=== PATIENT | male | born 1940 | race Caucasian/White ===

== ENCOUNTER → 2016-07-03 | Outpatient (REF) | payer MEDICARE | LOC: M LAB REF 12:45 | PROVIDERS: ATTEND Surgery | DX: C44.629 Squamous cell carcinoma of skin of left upper limb, including shoulder (principal) ==

== ENCOUNTER → 2018-07-13 | Outpatient (CLI) | payer MEDICARE ==
[2018-07-13 15:53] LABS: INR 0.94; PROTHROMBIN TIME 12.7 SECONDS (12.1-14.4)
[2018-07-13 16:06] LABS: CHOLESTEROL RISK RATIO 4.522 (<5)
[2018-07-17 00:09] LABS: ANTINUCLEAR ANTIBODIES DIRECT Negative (Negative)
== END ==
LOC: M LAB 14:57
PROVIDERS: ATTEND Ophthalmology
DX: H34.9 Unspecified retinal vascular occlusion (principal)

== ENCOUNTER → 2019-09-21 | Outpatient (REF) | payer MEDICARE ==
[2019-09-21 18:29] LABS: CHOLESTEROL RISK RATIO 4.805 (<5)
== END ==
LOC: M LAB REF 16:31
PROVIDERS: ATTEND Internal Medicine Nephrology
DX: E78.00 Pure hypercholesterolemia, unspecified (principal)

== ENCOUNTER 2021-01-24 12:42 | Inpatient (IN) | payer MEDICARE ==
[~2021-01-24] VITALS: Ht 180.3 cm; Wt 86.0 kg
[2021-01-24 13:37] LABS: HEMATOCRIT 39.7 % (42.0-52.0); HEMOGLOBIN 13.4 g/dl (13.5-17.5); MEAN CORPUSCULAR HEMOGLOBIN 30.2 pg (27.0-33.0); MEAN CORPUSCULAR HGB CONC 33.8 g/dl (32.0-36.5); MEAN CORPUSCULAR VOLUME 89.6 fl (80.0-96.0); PLATELET COUNT, AUTOMATED 252 10^3/uL (150-450); RED BLOOD COUNT 4.43 10^6/uL (4.30-6.10); WHITE BLOOD COUNT 7.6 10^3/uL (4.0-10.0)
[2021-01-24 13:50] LABS: INR 1.08; PROTHROMBIN TIME 14.5 SECONDS (12.7-14.5)
[2021-01-24 13:51] LABS: PARTIAL THROMBOPLASTIN TIME 36.7 SECONDS (25.9-37.0)
[2021-01-24 13:54] LABS: D-DIMER QUANT 2048.31 ng/ml (<500)
[2021-01-24] MEDS ORDERED: ACETAMINOPHEN 325 MG TAB PO ONE (13:55)
[2021-01-24 14:00] LABS: ALBUMIN 3.3 GM/DL (3.2-5.2); ALT/SGPT 32 U/L (12-78); BILIRUBIN,TOTAL 0.7 MG/DL (0.2-1.0); BLOOD UREA NITROGEN 33 MG/DL (7-18); CARBON DIOXIDE LEVEL 24 MEQ/L (21-32); CHLORIDE LEVEL 104 MEQ/L (98-107); CK-MB VALUE MASS < 1.0 NG/ML (<3.6); CPK CREATINE PHOSPHOKINASE 175 U/L (39-308); CREATININE FOR GFR 1.13 MG/DL (0.70-1.30); FERRITIN 1128 NG/ML (26-388); GLOMERULAR FILTRATION RATE > 60.0 (>42); GLUCOSE, FASTING 175 MG/DL (70-100); LDH LACTATE DEHYDROGENASE 297 U/L (87-241); MAGNESIUM LEVEL 2.6 MG/DL (1.8-2.4); MB/CK RELATIVE INDEX 0.57 (< OR =4); SODIUM LEVEL 137 MEQ/L (136-145); TOTAL PROTEIN 7.5 GM/DL (6.4-8.2); TROPONIN I < 0.02 NG/ML (< 0.10)
--- NOTE | 2021-01-24 14:03 | REP ---
INDICATION: Coronavirus workup. COMPARISON: 08/19/2013 the latest prior TECHNIQUE: Portable FINDINGS: The technique utilized in obtaining the radiograph has magnified the cardiac silhouette and accentuated the interstitial markings. There are patchy bilateral airspace opacities mild to moderate on the right and mild on the left and all representing a change from the prior exam. The cardiomediastinal silhouette appears stable. Mild cardiomegaly accentuated by technique cannot be ruled out. The osseous structures are stable and intact. IMPRESSION: Airspace opacities consistent with pneumonia. <Electronically signed by Amado Pop > 01/24/21 [id number]
[2021-01-24 14:16] LABS: ATYPICAL LYMPH 3 % (0-5); LYMPHOCYTES 19 % (16-44); MONOCYTES 2 % (0-5); NEUTROPHILS 76 % (28-66); PLATELET ESTIMATE NORMAL (NORMAL)
[2021-01-24] MEDS ORDERED: dexameTHASONE 20MG/5ML VIAL (J1100 PER 1MG) IV ONE (14:35)
[2021-01-24] MEDS ORDERED: cefTRIAXone SOD 1 GM in D5W MINI-BAG PLUS 50 ML IV ONE (14:40)
[2021-01-24] MEDS ORDERED: AZITHROMYCIN INJ 500 MG, VIAL MATE ADAPTER 1 EACH in NS 250 ML IV ONE (14:40)
[2021-01-24] MEDS ORDERED: GLIP2.5T6 PO (15:07)
[2021-01-24] MEDS ORDERED: METF500T13 PO (15:07)
[2021-01-24] MEDS ORDERED: TELM1TAB16 PO (15:07)
[2021-01-24] MEDS ORDERED: MAGN400T2 PO (15:07)
[2021-01-24] MEDS ORDERED: ALBU8.5H INH (15:07)
[2021-01-24] MEDS ORDERED: TESS100C PO (15:07)
[2021-01-24] MEDS ORDERED: AMLO1TAB24 PO (15:07)
[2021-01-24] MEDS ORDERED: D31000TA2 PO (15:07)
[2021-01-24] MEDS ORDERED: MINO10TA PO (15:07)
[2021-01-24] MEDS ORDERED: ACET650T15 PO (15:07)
[2021-01-24] MEDS ORDERED: EZET10TA21 PO (15:07)
[2021-01-24] MEDS ORDERED: ALIG4CAP PO (15:07)
[2021-01-24] MEDS ORDERED: HOME MED LIST COMPLETE! XX SCH (15:10)
[2021-01-24] MEDS ORDERED: BENZONATATE 100 MG CAP PO PRN (15:15)
[2021-01-24] MEDS ORDERED: ACETAMINOPHEN TAB 650MG DOSE (2X325MG) PO PRN (15:15)
[2021-01-24] MEDS ORDERED: ALBUTEROL 90 MCG/ACT 8GM HFA INHALER INH PRN (15:30)
--- NOTE | 2021-01-24 15:37 | HPEPDOC ---
General Date of Admission 01/24/21 Date of Service: Jan 24, 2021 Chief Complaint The patient is a 80-year-old male admitted with a reason for visit of + Covid. Source: Patient Exam Limitations: No limitations History of Present Illness Patient is 80 years old male with past medical history of type 2 diabetes, hyperlipidemia, hypertension, chronic kidney disease presented to hospital with increased shortness of breath. Patient was tested positive for COVID-19 on January 18 and he was previously unvaccinated. He stated that for past 2 weeks he developed increased shortness of breath associated with cough and chills. He did not check his temperature. He stated that his shortness of breath became progressively worse. In ER patient was found to have low oxygen saturation requires 3 L of oxygen. Patient was found to have no leukocytosis, hemoglobin 13.4, D-dimer 2048, lactic acid within normal limit. Chest x-ray showed airspace opacities consistent with pneumonia. Home Medications Scheduled Acetaminophen (Acetaminophen ER) 650 Mg Tablet.er, 1,300 MG PO BID, (Reported) Amlodipine Besylate (Amlodipine Besylate) 5 Mg Tablet, 5 MG PO QHS, (Reported) Bifidobacterium Infantis (Align) 4 Mg Capsule, 4 MG PO QHS, (Reported) Cholecalciferol (Vitamin D3) (Vitamin D3) 1,000 Unit Tablet, 1,000 UNITS PO QHS, (Reported) Ezetimibe (Ezetimibe) 10 Mg Tablet, 10 MG PO QHS, (Reported) Glipizide (Glipizide ER) 2.5 Mg Tab.er.24, 2.5 MG PO QHS, (Reported) Magnesium Oxide (Magnesium Oxide) 400 Mg Tablet, 400 MG PO QHS, (Reported) Metformin HCl (Metformin HCl) 500 Mg Tablet, 1,000 MG PO BID, (Reported) Minoxidil (Minoxidil) 10 Mg Tablet, 10 MG PO QHS, (Reported) Telmisartan/Hydrochlorothiazid (Telmisartan-Hctz 80-12.5 mg Tb) 1 Each Tablet, 1 TAB PO QHS, (Reported) Scheduled PRN Albuterol Sulfate (Albuterol Sulfate Hfa) 8.5 Gm Hfa.aer.ad, 2 PUFFS INH Q6H PRN for SOB/COUGH, (Reported) Benzonatate (Tessalon Perle) 100 Mg Capsule, 100 MG PO TID PRN for COUGH, (Reported) Allergies Coded Allergies: No Known Allergies (Verified Allergy, Unknown, 01/24/21) Past Medical History Medical History DIABETES MELLITUS HYPERCHOLESTEROLEMIA HYPERTENSION CHRONIC RENAL INSUFFICIENCY PROTEINURIA DEIVERTICULOSIS CHOLECYSTITIS HEMATURIA Social History * Smoker: Denies Alcohol: Denies Drugs: denies A-FIB/CHADSVASC A-FIB History Current/History of A-Fib/PAF?: No Current PO Anticoag Therapy: No Review of Systems Constitutional: Reports: Chills, Weakness Eyes: Denies: Pain ENT: Denies: Head Aches Skin: Denies: Rash, Lesions Pulmonary: Reports: Dyspnea, Cough Cardiovascular: Denies: Chest Pain Gastrointestinal: Denies: Nausea Genitourinary: Denies: Dysuria Hematologic: Denies: Bruising Endocrine: Denies: Polydipsia Musculoskeletal: Denies: Neck Pain Neurological: Denies: Weakness Psych: Reports: Mood Normal Physical Examination General Exam: Positive: Alert, Cooperative Eye Exam: Positive: PERRLA ENT Exam: Positive: Atraumatic Neck Exam: Positive: Supple; Negative: JVD Chest Exam: Positive: Diminished Heart Exam: Positive: Rate Normal Telemetry: Positive: No significant arrhythmia Abdomen Exam: Positive: Normal bowel sounds Extremity Exam: Negative: Clubbing Skin Exam: Positive: Nl turgor and temperature Neuro Exam: Positive: Normal Gait Psych Exam: Positive: Mental status NL Vital Signs Vital Signs Date Time Temp Pulse Resp B/P (MAP) Pulse Ox O2 Delivery O2 Flow Rate FiO2 01/24/21 15:16 82 16 91 Nasal Cannula 3.0 01/24/21 15:00 139/63 (88) 01/24/21 12:51 96.3 Laboratory Data Labs 24H Laboratory Tests 2 01/24/21 13:11: Neutrophils (%) (Auto) , Nucleated Red Blood Cells % (auto) 0.0, Neutrophils 76H, Lymphocytes (Manual) 19, Monocytes (Manual) 2, Atypical Lymphocytes 3, Red Blood Cell Morphology NORMAL, Platelet Estimate NORMAL, Prothrombin Time 14.5H, Prothromb Time International Ratio 1.08, Activated Partial Thromboplast Time 36.7, Fibrinogen 743H, D-Dimer, Quantitative 2048.31H, Anion Gap 9, Glomerular Filtration Rate > 60.0, Lactic Acid Level 1.5, Calcium Level 9.0, Magnesium Level 2.6H, Ferritin 1128H, Total Bilirubin 0.7, Aspartate Amino Transf (AST/SGOT) 38H, Alanine Aminotransferase (ALT/SGPT) 32, Alkaline Phosphatase 50, Lactate Dehydrogenase 297H, Total Creatine Kinase 175, Creatine Kinase MB < 1.0, Creatine Kinase MB Relative Index 0.57, Troponin I < 0.02, C-Reactive Protein, Quantitative 17.20H, Total Protein 7.5, Albumin 3.3, Albumin/Globulin Ratio 0.8 CBC/BMP Laboratory Tests 01/24/21 13:11 Microbiology Microbiology 01/24/21 Blood Culture, Received Pending 01/24/21 Blood Culture, Received Pending Assessment/Plan Patient is 80 years old male with past medical history of type 2 diabetes, hyperlipidemia, hypertension, chronic kidney disease presented to hospital with increased shortness of breath. Patient was tested positive for COVID-19 on January 18 and he was previously unvaccinated. He stated that for past 2 weeks he developed increased shortness of breath associated with cough and chills. He did not check his temperature. He stated that his shortness of breath became progressively worse. In ER patient was found to have low oxygen saturation requires 3 L of oxygen. Patient was found to have no leukocytosis, hemoglobin 13.4, D-dimer 2048, lactic acid within normal limit. Chest x-ray showed airspace opacities consistent with pneumonia. Problems (1) COVID-19 Status: Acute Problem Text: Labs according to COVID-19 protocol Remdesivir and Decadron IV Full dose of therapeutic anticoagulation given increased D-dimer (2) Pneumonia Status: Acute Problem Text: Community-acquired pneumonia secondary to COVID-19 Incentive spirometry Inhalers Empirically started azithromycin IV and ceftriaxone IV. We will check procalcitonin (3) Diabetes mellitus Status: Chronic Problem Text: Glucose level under control Diabetes diet Insulin sliding scale (4) Hypertension Status: Chronic Problem Text: Continue home meds (5) Hyperlipidemia Status: Chronic Problem Text: Continue statin Plan / VTE VTE Prophylaxis Ordered?: Yes BRADFORD JONES DO Jan 24, 2021 15:37
[2021-01-24] MEDS ORDERED: GLUCOSE 4GM CHEW TABLET PO PRN (15:45)
[2021-01-24] MEDS ORDERED: GLUCAGON INJ 1MG VIAL SC PRN (15:45)
[2021-01-24] MEDS ORDERED: DEXTROSE 50% 50 ML SYRINGE IV PRN (15:45)
[2021-01-24 18:09] LABS: ALT/SGPT 31 U/L (12-78); BILIRUBIN,DIRECT 0.2 MG/DL (0.0-0.2); BILIRUBIN,TOTAL 0.5 MG/DL (0.2-1.0); CPK CREATINE PHOSPHOKINASE 167 U/L (39-308); LDH LACTATE DEHYDROGENASE 290 U/L (87-241); NT-PRO BNP 136 PG/ML (<450); TOTAL PROTEIN 7.1 GM/DL (6.4-8.2); TROPONIN I < 0.02 NG/ML (< 0.10)
[2021-01-24] MEDS: HumaLOG INSULIN (NovoLOG) PER UNIT SC SCH (18:49)
--- NOTE | 2021-01-24 19:05 | ECGEPIP ---
[facility] - ED Test Date: 2021-01-24 Pat Name: DEBBI ANDERSON Department: Room: - Gender: Male Hospital Chaplain: : 1940 Requested By: ROSALINDA SHELTON Order Number: [id number] Reading MD: Terry Anderson Measurements Intervals [place] Rate: 86 P: 11 MD: 198 QRS: -73 QRSD: 152 T: 14 QT: 404 QTc: 483 Interpretive Statements Normal sinus rhythm Left axis deviation Right bundle branch block NO PRIORS FOR COMPARISON Electronically Signed on 01-24-2021 19:04:57 EDT by Terry Anderson
[2021-01-24] MEDS: TELMISARTAN 20 MG TAB PO SCH (21:00)
[2021-01-24] MEDS: amLODIPine 5 MG TAB PO SCH (21:00)
[2021-01-24] MEDS: MAGNESIUM OXIDE 400MG TAB (MAG-OX) PO SCH (21:00)
[2021-01-24 23:00] VITALS: BP 118/67; O2SAT 89
[2021-01-25] VITALS (8 sets, daily range): BP systolic 108–145; BP diastolic 56–65; O2SAT 93–95
[2021-01-25] MEDS ORDERED: REMDESIVIR 200 MG in NS 250 ML IV ONE ×2
[2021-01-25 00:30] LABS: APPEARANCE, URINE HAZY (CLEAR); BACTERIA, URINE AUTO NEGATIVE (NEGATIVE); BILIRUBIN, URINE AUTO NEGATIVE (NEGATIVE); BLOOD, URINE BLOOD NEGATIVE (NEGATIVE); COLOR, URINE AMBER (YELLOW); GLUCOSE, URINE (UA) AUTO NEGATIVE (NEGATIVE); KETONE, URINE AUTO NEGATIVE (NEGATIVE); LEUKOCYTE ESTERASE, URINE AUTO NEGATIVE (NEGATIVE); MUCUS, URINE SMALL (NEGATIVE); NITRITE, URINE AUTO NEGATIVE (NEGATIVE); PROTEIN, URINE AUTO 3+ mg/dL (NEGATIVE); RBC, URINE AUTO 2 /HPF (0-3); SPECIFIC GRAVITY URINE AUTO 1.024 (1.002-1.035); SQUAMOUS EPITHELIAL CELL UR AU 0 /HPF (0-6); UROBILINOGEN, URINE AUTO 0.2 mg/dL (0.0-2.0); WBC, URINE AUTO 2 /HPF (0-3)
[2021-01-25] MEDS: VITAMIN D 1,000 INTERNATIONAL UNITS TABLET PO SCH ×2 (00:47→20:45)
[2021-01-25] MEDS: HumaLOG INSULIN (NovoLOG) PER UNIT SC SCH ×5 (00:48→20:45)
[2021-01-25] MEDS: ENOXAPARIN 100MG/1ML SYRINGE (J1650 PER 10MG) SC SCH ×2 (00:48→20:43)
[2021-01-25] MEDS: ACETAMINOPHEN 650MG ER TAB (TYLENOL ARTHRITIS) PO SCH ×3 (00:49→20:45)
[2021-01-25] MEDS: EZETIMIBE 10 MG TAB (ZETIA) PO SCH ×2 (01:19→20:45)
[2021-01-25] MEDS ORDERED: SODIUM CHLORIDE 0.9% INJ 10 ML SYR IV ONE (02:00)
[2021-01-25] MEDS: IPRATROPIUM 0.5MG/ALBUTEROL 2.5MG INH SOL UD 3ML (DUONEB) INH SCH ×2 (07:11→11:05)
[2021-01-25] MEDS: dexameTHASONE 4 MG/ML 1ML VIAL (J1100 PER 1MG) IV SCH (09:23)
[2021-01-25 10:31] LABS: HEMATOCRIT 36.8 % (42.0-52.0); HEMOGLOBIN 12.3 g/dl (13.5-17.5); MEAN CORPUSCULAR HEMOGLOBIN 30.1 pg (27.0-33.0); MEAN CORPUSCULAR HGB CONC 33.4 g/dl (32.0-36.5); PLATELET COUNT, AUTOMATED 263 10^3/uL (150-450); RED BLOOD COUNT 4.09 10^6/uL (4.30-6.10); WHITE BLOOD COUNT 5.2 10^3/uL (4.0-10.0)
[2021-01-25 11:02] LABS: ALBUMIN 2.9 GM/DL (3.2-5.2); ALT/SGPT 36 U/L (12-78); BILIRUBIN,DIRECT 0.2 MG/DL (0.0-0.2); BILIRUBIN,TOTAL 0.4 MG/DL (0.2-1.0); BLOOD UREA NITROGEN 35 MG/DL (7-18); CALCIUM LEVEL 9.1 MG/DL (8.8-10.2); CARBON DIOXIDE LEVEL 26 MEQ/L (21-32); CHLORIDE LEVEL 105 MEQ/L (98-107); GLOMERULAR FILTRATION RATE > 60.0 (>42); GLUCOSE, FASTING 212 MG/DL (70-100); MAGNESIUM LEVEL 2.9 MG/DL (1.8-2.4); POTASSIUM SERUM 4.4 MEQ/L (3.5-5.1); SODIUM LEVEL 137 MEQ/L (136-145); TOTAL PROTEIN 6.9 GM/DL (6.4-8.2)
[2021-01-25 11:14] LABS: ATYPICAL LYMPH 2 % (0-5); BASOPHILS 2 % (0-1); LYMPHOCYTES 2 % (16-44); NEUTROPHILS 75 % (28-66)
[2021-01-25 11:15] LABS: PLATELET ESTIMATE NORMAL (NORMAL)
--- NOTE | 2021-01-25 12:49 | IPNPDOC ---
Text Note Date of Service The patient was seen on 01/25/21. NOTE Subjective: Patient stated that he feels better. His oxygen requirements inc reased to 5 L via nasal cannula overnight. He reported less cough compare to yesterday. Objective: GENERAL APPEARANCE: NAD HEENT: no scleral icterus, no JVD, EOMI CARDIOVASCULAR: S1S2 LUNGS: Diminished lung sounds bilaterally ABDOMEN: soft & not tender w palpation MUSCULOSKELETAL: no cyanosis, no swelling INTEGUMENT: no generalized pallor NEUROLOGICAL: cranial nerve function from 2-12 intact, follows commands, speech not dysarthric Assessment/Plan Patient is 80 years old male with past medical history of type 2 diabetes, hyperlipidemia, hypertension, chronic kidney disease presented to hospital with increased shortness of breath. Patient was tested positive for COVID-19 on S eptember 3 and he was previously unvaccinated. He stated that for past 2 weeks he developed increased shortness of breath associated with cough and chills. He did not check his temperature. He stated that his shortness of breath became progressively worse. In ER patient was found to have low oxygen saturation requires 3 L of oxygen. Patient was found to have no leukocytosis, hemoglobin 13.4, D-dimer 2048, lactic acid within normal limit. Chest x-ray showed airspace opacities consistent with pneumonia. Problems (1) COVID-19 Labs according to COVID-19 protocol Continue remdesivir and Decadron IV Full dose of therapeutic anticoagulation given increased D-dimer (2) Pneumonia Community-acquired pneumonia secondary to COVID-19 Incentive spirometry Inhalers Procalcitonin negative, discontinue azithromycin IV and ceftriaxone IV (3) Diabetes mellitus Diabetes diet Insulin sliding scale I added detemir 5 units twice daily for better control of glucose level (4) Hypertension Continue home meds (5) Hyperlipidemia Continue statin Plan / VTE VTE Prophylaxis Ordered?: Yes VS,Fishbone, I+O VS, Fishbone, I+O Laboratory Tests 01/24/21 13:11 01/25/21 09:37 Vital Signs Date Time Temp Pulse Resp B/P (MAP) Pulse Ox O2 Delivery O2 Flow Rate FiO2 01/25/21 09:00 4.0 01/25/21 04:00 94 Nasal Cannula 01/25/21 03:00 96.3 71 20 119/60 (79) I&O- Last 24 Hours up to 6 AM 01/25/21 06:00 Intake Total 865 ml Output Total 250 ml Balance 615 ml BRADFORD JONES DO Jan 25, 2021 12:49
[2021-01-25] MEDS: LEVEMIR (INSULIN DETEMIR) 1 UNITS/0.01ML SC SCH ×2 (13:27→20:44)
[2021-01-25] MEDS ORDERED: cefTRIAXone SOD 1 GM in D5W MINI-BAG PLUS 50 ML IV SCH (15:00)
[2021-01-25] MEDS ORDERED: VANCOMYCIN HCL 1,000 MG, VIAL MATE ADAPTER 1 EACH in NS 250 ML IV ONE (15:00)
[2021-01-25] MEDS ORDERED: AZITHROMYCIN INJ 500 MG, VIAL MATE ADAPTER 1 EACH in NS 250 ML IV SCH (16:00)
[2021-01-25] MEDS: VANCOMYCIN HCL 1,000 MG, VIAL MATE ADAPTER 1 EACH in NS 250 ML IV SCH (18:13)
[2021-01-25] MEDS: TELMISARTAN 20 MG TAB PO SCH (20:46)
[2021-01-25] MEDS: amLODIPine 5 MG TAB PO SCH (20:46)
[2021-01-25] MEDS: MAGNESIUM OXIDE 400MG TAB (MAG-OX) PO SCH (21:00)
[2021-01-25] MEDS: ALBUTEROL 90 MCG/ACT 8GM HFA INHALER INH PRN (23:39)
[2021-01-26] VITALS (7 sets, daily range): BP systolic 119–142; BP diastolic 58–66; O2SAT 92–95
[2021-01-26] MEDS ORDERED: REMDESIVIR 100 MG in NS 250 ML IV SCH ×2
[2021-01-26] MEDS ORDERED: SODIUM CHLORIDE 0.9% INJ 10 ML SYR IV SCH (01:00)
[2021-01-26] MEDS: VANCOMYCIN HCL 1,000 MG, VIAL MATE ADAPTER 1 EACH in NS 250 ML IV SCH (06:41)
[2021-01-26] MEDS: ALBUTEROL 90 MCG/ACT 8GM HFA INHALER INH PRN (07:53)
[2021-01-26] MEDS: LEVEMIR (INSULIN DETEMIR) 1 UNITS/0.01ML SC SCH (08:33)
[2021-01-26] MEDS: HumaLOG INSULIN (NovoLOG) PER UNIT SC SCH ×2 (08:33→13:20)
[2021-01-26] MEDS: ACETAMINOPHEN 650MG ER TAB (TYLENOL ARTHRITIS) PO SCH (08:34)
[2021-01-26] MEDS: dexameTHASONE 4 MG/ML 1ML VIAL (J1100 PER 1MG) IV SCH (08:34)
[2021-01-26 09:06] LABS: HEMATOCRIT 36.6 % (42.0-52.0); HEMOGLOBIN 12.4 g/dl (13.5-17.5); MEAN CORPUSCULAR HEMOGLOBIN 30.3 pg (27.0-33.0); MEAN CORPUSCULAR HGB CONC 33.9 g/dl (32.0-36.5); MEAN CORPUSCULAR VOLUME 89.5 fl (80.0-96.0); PLATELET COUNT, AUTOMATED 290 10^3/uL (150-450); RED BLOOD COUNT 4.09 10^6/uL (4.30-6.10); WHITE BLOOD COUNT 8.5 10^3/uL (4.0-10.0)
[2021-01-26 09:26] LABS: INR 1.04
[2021-01-26 09:27] LABS: PARTIAL THROMBOPLASTIN TIME 36.1 SECONDS (25.9-37.0)
[2021-01-26 09:38] LABS: ATYPICAL LYMPH 2 % (0-5); LYMPHOCYTES 18 % (16-44); MONOCYTES 3 % (0-5); NEUTROPHILS 77 % (28-66); PLATELET ESTIMATE NORMAL (NORMAL)
[2021-01-26 09:41] LABS: ALBUMIN 2.7 GM/DL (3.2-5.2); ALT/SGPT 46 U/L (12-78); BILIRUBIN,DIRECT 0.1 MG/DL (0.0-0.2); BILIRUBIN,TOTAL 0.4 MG/DL (0.2-1.0); BLOOD UREA NITROGEN 30 MG/DL (7-18); CALCIUM LEVEL 9.1 MG/DL (8.8-10.2); CARBON DIOXIDE LEVEL 26 MEQ/L (21-32); CHLORIDE LEVEL 111 MEQ/L (98-107); CPK CREATINE PHOSPHOKINASE 66 U/L (39-308); CREATININE FOR GFR 0.79 MG/DL (0.70-1.30); FERRITIN 1343 NG/ML (26-388); GLOMERULAR FILTRATION RATE > 60.0 (>42); GLUCOSE, FASTING 140 MG/DL (70-100); LDH LACTATE DEHYDROGENASE 239 U/L (87-241); MAGNESIUM LEVEL 2.6 MG/DL (1.8-2.4); NT-PRO BNP 254 PG/ML (<450); POTASSIUM SERUM 4.5 MEQ/L (3.5-5.1); SODIUM LEVEL 143 MEQ/L (136-145); TOTAL PROTEIN 6.7 GM/DL (6.4-8.2); TROPONIN I < 0.02 NG/ML (< 0.10)
[2021-01-26] MEDS ORDERED: PRED10TA2 PO (16:04)
--- NOTE | 2021-01-26 18:08 | DS.PDOC ---
Discharge Summary General Date of Admission Jan 24, 2021 at 15:14 Date of Discharge 01/26/21 Discharge Summary PROCEDURES PERFORMED DURING STAY: [None]. ADMITTING DIAGNOSES: COVID-19 Pneumonia Diabetes mellitus Hypertension Hyperlipidemia DISCHARGE DIAGNOSES: COVID-19 Pneumonia Diabetes mellitus Hypertension Hyperlipidemia COMPLICATIONS/CHIEF COMPLAINT: Covid-19, Pneumonia. HISTORY OF PRESENT ILLNESS:Patient is 80 years old male with past medical history of type 2 diabetes, hyperlipidemia, hypertension, chronic kidney disease presented to hospital with increased shortness of breath. Patient was tested positive for COVID-19 on January 18 and he was previously unvaccinated. He stated that for past 2 weeks he developed increased shortness of breath associated with cough and chills. He did not check his temperature. He stated that his shortness of breath became progressively worse. In ER patient was found to have low oxygen saturation requires 3 L of oxygen. Patient was found to have no leukocytosis, hemoglobin 13.4, D-dimer 2048, lactic acid within normal limit. Chest x-ray showed airspace opacities consistent with pneumonia. HOSPITAL COURSE: During the hospital stay the following issue addressed Patient received treatment with remdesivir and Decadron IV. His breathing improved. 1 set of blood culture was positive for gram-positive cocci however repeated blood culture was negative and second set of blood culture was also negative. Most likely it was contamination. Procalcitonin was negative and azithromycin IV and ceftriaxone IV was stopped Patient will be discharged with close follow-up with PCP DISCHARGE MEDICATIONS: Please see below. ALLERGIES: Please see below. PHYSICAL EXAMINATION ON DISCHARGE: VITAL SIGNS: Please see below. GENERAL APPEARANCE: NAD HEENT: no scleral icterus, no JVD, EOMI CARDIOVASCULAR: S1S2 LUNGS: Diminished lung sounds bilaterally ABDOMEN: soft & not tender w palpation MUSCULOSKELETAL: no cyanosis, no swelling INTEGUMENT: no generalized pallor NEUROLOGICAL: cranial nerve function from 2-12 intact, follows commands, speech not dysarthric LABORATORY DATA: Please see below. PROGNOSIS: Fair ACTIVITY: [As tolerated]. DIET: Cardiac DISCHARGE PLAN: Darryn DISCHARGE INSTRUCTIONS: Follow carantine timeframe ITEMS TO FOLLOWUP ON ON OUTPATIENT: Follow-up with PCP DISCHARGE CONDITION: [Stable]. TIME SPENT ON DISCHARGE: 40 minutes. Vital Signs/I&Os Vital Signs Date Time Temp Pulse Resp B/P (MAP) Pulse Ox O2 Delivery O2 Flow Rate FiO2 01/26/21 14:00 97.2 66 18 142/63 (89) 94 Nasal Cannula 3.0 I&O- Last 24 Hours up to 6 AM 01/26/21 06:00 Intake Total 1110 ml Output Total 825 ml Balance 285 ml Laboratory Data Labs 24H Laboratory Tests 2 01/25/21 19:41: Bedside Glucose (Misc Panel) 320H 01/26/21 05:02: Bedside Glucose (Misc Panel) 171H 01/26/21 08:26: Neutrophils (%) (Auto) , Nucleated Red Blood Cells % (auto) 0.0, Neutrophils 77H, Lymphocytes (Manual) 18, Monocytes (Manual) 3, Atypical Lymphocytes 2, Red Blood Cell Morphology NORMAL, Platelet Estimate NORMAL, Prothrombin Time 14.0, Prothromb Time International Ratio 1.04, Activated Partial Thromboplast Time 36.1, Fibrinogen 672H, Anion Gap 6L, Glomerular Filtration Rate > 60.0, Calcium Level 9.1, Magnesium Level 2.6H, Ferritin 1343H, Total Bilirubin 0.4, Direct Bilirubin 0.1, Aspartate Amino Transf (AST/SGOT) 36, Alanine Aminotransferase (ALT/SGPT) 46, Alkaline Phosphatase 50, Lactate Dehydrogenase 239, Total Creatine Kinase 66, Troponin I < 0.02, XX-Veg-Z-Type Natriuretic Peptide 254, Total Protein 6.7, Albumin 2.7L, Albumin/Globulin Ratio 0.7, Procalcitonin <0.05 01/26/21 12:01: Bedside Glucose (Misc Panel) 298H CBC/BMP Laboratory Tests 01/26/21 08:26 FSBS Laboratory Tests Test 01/25/21 19:41 01/26/21 05:02 01/26/21 12:01 Range/Units Bedside Glucose (Misc Panel) 320 171 298 83-110 MG/DL Microbiology Microbiology 01/25/21 Blood Culture - Preliminary, Resulted No growth after 24 hours . All specim... 01/25/21 Blood Culture - Preliminary, Resulted No growth after 24 hours . All specim... 01/24/21 Blood Culture - Preliminary, Resulted 01/24/21 Blood Culture - Preliminary, Resulted No Growth after 48 hours. All Specime... Discharge Medications Scheduled Acetaminophen (Acetaminophen ER) 650 Mg Tablet.er, 1,300 MG PO BID, (Reported) Amlodipine Besylate (Amlodipine Besylate) 5 Mg Tablet, 5 MG PO QHS, (Reported) Bifidobacterium Infantis (Align) 4 Mg Capsule, 4 MG PO QHS, (Reported) Cholecalciferol (Vitamin D3) (Vitamin D3) 1,000 Unit Tablet, 1,000 UNITS PO QHS, (Reported) Ezetimibe (Ezetimibe) 10 Mg Tablet, 10 MG PO QHS, (Reported) Glipizide (Glipizide ER) 2.5 Mg Tab.er.24, 2.5 MG PO QHS, (Reported) Magnesium Oxide (Magnesium Oxide) 400 Mg Tablet, 400 MG PO QHS, (Reported) Metformin HCl (Metformin HCl) 500 Mg Tablet, 1,000 MG PO BID, (Reported) Minoxidil (Minoxidil) 10 Mg Tablet, 10 MG PO QHS, (Reported) Prednisone (Prednisone) 10 Mg Tablet, 10 MG PO TAPER Take 4 tabs daily x 3 days, then 3 tabs daily x 3 days, then 2 tabs daily x 3 days, then 1 tab daily x 3 days and stop Telmisartan/Hydrochlorothiazid (Telmisartan-Hctz 80-12.5 mg Tb) 1 Each Tablet, 1 TAB PO QHS, (Reported) Scheduled PRN Albuterol Sulfate (Albuterol Sulfate Hfa) 8.5 Gm Hfa.aer.ad, 2 PUFFS INH Q6H PRN for SOB/COUGH, (Reported) Benzonatate (Tessalon Perle) 100 Mg Capsule, 100 MG PO TID PRN for COUGH, (Reported) Allergies Coded Allergies: No Known Allergies (Verified Allergy, Unknown, 01/24/21) BRADFORD JONES DO Jan 26, 2021 18:08
[2021-01-27] MEDS ORDERED: VANCOMYCIN HCL 750 MG, VIAL MATE ADAPTER 1 EACH in NS 250 ML IV SCH (07:00)
[2021-01-27] MEDS ORDERED: VANCOMYCIN HCL 500 MG in D5W MINI-BAG PLUS 100 ML IV SCH (08:00)
== END 2021-01-26 19:45 | disposition home or self-care (01) | DRG 177 ==
LOC: EDBD 12:42 → M ED 12:42 → M ED INP 15:14 → M 4MAIN 22:05
PROVIDERS: ADMIT Internal Medicine; ATTEND Internal Medicine
PROC: 3E0333Z Introduction of Anti-inflammatory into Peripheral Vein, Percutaneous Approach (ICD-10-PCS; principal; 2021-01-24)
PROC: XW033E5 Introduction of Remdesivir Anti-infective into Peripheral Vein, Percutaneous Approach, New Technology Group 5 (ICD-10-PCS; 2021-01-25)
DX: U07.1 COVID-19 (principal); J12.82 Pneumonia due to coronavirus disease 2019; E11.22 Type 2 diabetes mellitus with diabetic chronic kidney disease; E78.5 Hyperlipidemia, unspecified; I12.9 Hypertensive chronic kidney disease with stage 1 through stage 4 chronic kidney disease, or unspecified chronic kidney disease; N18.9 Chronic kidney disease, unspecified; Z79.84 Long term (current) use of oral hypoglycemic drugs; Z79.899 Other long term (current) drug therapy

== ENCOUNTER → 2021-03-19 | Outpatient (REF) | payer MEDICARE ==
[~2021-03-19] MED LIST: ACET650T15 PO; ALBU8.5H INH; ALIG4CAP PO; AMLO1TAB24 PO; D31000TA2 PO; EZET10TA21 PO; GLIP2.5T6 PO; MAGN400T2 PO; METF500T13 PO; MINO10TA PO; PRED10TA2 PO; TELM1TAB16 PO; TESS100C PO
== END ==
LOC: M LAB REF 17:16
PROVIDERS: ATTEND Internal Medicine Nephrology
DX: E83.42 Hypomagnesemia (principal)

== ENCOUNTER → 2024-03-25 | Outpatient (REF) | payer MEDICARE ==
[~2024-03-25] MED LIST changes: -D31000TA2 PO; +VITA100093 PO
[2024-03-28 08:35] LABS: CREATININE,RANDOM URINE 135.7 MG/DL
== END ==
LOC: M LAB REF 16:58
PROVIDERS: ATTEND Nurse Practitioner Family
DX: R80.9 Proteinuria, unspecified (principal)